=== PATIENT | male | born 2000 | race Caucasian/White ===

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

== ENCOUNTER 2020-04-13 14:14 | Emergency (ER) | payer OTHER ==
[~2020-04-13] VITALS: Ht 193 cm; Wt 105.7 kg
[~2020-04-13 14:14] MED LIST changes: +ONDANSETRON ODT4 MG PO; +VISTARIL 25 MG25 M1 PO
[2020-04-13 15:48] LABS: INFLUENZA A ANTIGEN Negative (Negative); INFLUENZA B ANTIGEN Negative (Negative)
[2020-04-13] MEDS ORDERED: PREDNISONE 20 M20 MG PO (16:16)
[2020-04-13] MEDS ORDERED: APAP W/CODEINE1 TA2 PO (16:16)
[2020-04-13] MEDS ORDERED: PROAIR HFA8.5 GM INH (16:16)
[2020-04-13 16:56] VITALS: BP 118/70
--- NOTE | 2020-04-14 14:36 | EKG ---
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: [facility] : 2000 Requested By: Rex Garrett Order Number: [id number] Alhaji MD: Federico Salinas Measurements Intervals [place] Rate: 101 P: 37 TX: 128 QRS: 131 QRSD: 104 T: 11 QT: 324 QTc: 420 Interpretive Statements Sinus tachycardia Right axis deviation ST elev, probable normal early repol pattern No previous ECG available for comparison Electronically Signed On 04-14-2020 14:36:20 APPLICATION SUPPORT ADMINISTRATOR by Federico Salinas [email or web address] <ELECTRONICALLY SIGNED> By: Federico Salinas MD, [facility] 04/14/20 1436 1423 142 Federico Salinas MD, [facility] /EPI
== END 2020-04-13 16:59 | disposition home or self-care (01) ==
LOC: M.ERS 14:14
PROVIDERS: Physician Assistant
DX: J06.9 Acute upper respiratory infection, unspecified (principal); Z20.828 Contact with and (suspected) exposure to other viral communicable diseases

== ENCOUNTER 2020-08-27 20:27 | Emergency (ER) | payer OTHER ==
[~2020-08-27] VITALS: Ht 193 cm; Wt 109.8 kg
[~2020-08-27 20:27] MED LIST changes: +APAP W/CODEINE1 TA2 PO; +PREDNISONE 20 M20 MG PO; +PROAIR HFA8.5 GM INH
[2020-08-27 21:49] VITALS: BP 132/68
== END 2020-08-27 21:49 | disposition home or self-care (01) ==
LOC: M.ERS 20:27
DX: S90.31XA Contusion of right foot, initial encounter (principal); W22.8XXA Striking against or struck by other objects, initial encounter; Y93.89 Activity, other specified; Y92.89 Other specified places as the place of occurrence of the external cause; Y99.8 Other external cause status